=== PATIENT | female | born 1960 | race Caucasian/White ===

== ENCOUNTER 2017-10-03 14:34 | Emergency (ER) | payer OTHER ==
[~2017-10-03] VITALS: Ht 165.1 cm; Wt 81.7 kg
[~2017-10-03 14:34] MED LIST: CYMBALTA20 MG; CYMBALTA60 MG PO; LORTAB 5 MG/5001 TA1 PO
[2017-10-03] MEDS ORDERED: WELLBUTRIN 100100 MG PO (15:09)
[2017-10-03 15:31] VITALS: BP 143/86
[2017-10-03] MEDS ORDERED: NAPROSYN500 MG PO (15:37)
[2017-10-03] MEDS ORDERED: NORFLEX100 MG PO (15:37)
== END 2017-10-03 15:48 | disposition home or self-care (01) ==
LOC: ER 14:34
DX: S39.012A Strain of muscle, fascia and tendon of lower back, initial encounter (principal); Z88.0 Allergy status to penicillin; Z98.890 Other specified postprocedural states; W10.9XXA Fall (on) (from) unspecified stairs and steps, initial encounter; Y92.89 Other specified places as the place of occurrence of the external cause; Y93.89 Activity, other specified; Y99.8 Other external cause status